=== PATIENT | male | born 1990 | race African-American/Black ===

== ENCOUNTER 2018-07-06 02:38 | Emergency (ER) | payer BC ==
[~2018-07-06] VITALS: Ht 195.6 cm; Wt 99.8 kg
[2018-07-06 02:50] VITALS: BP 118/69
--- NOTE | 2018-07-06 02:52 | NUR ---
Pt sent to lobby to wait for a bed.
--- NOTE | 2018-07-06 03:29 | NUR ---
PT TAKEN TO BED 8
--- NOTE | 2018-07-06 03:30 | NUR ---
PT PRESENTED ER WITH C/O N/V X 1 DAY. PT STATED HE HAS SOME CHEST PAIN. PAIN LEVEL IS 1/10 AT THIS TIME. BOWL SOUNDS ACTIVE IN ALL 4 Q. PT HAS KNA AND NO PREVIOUS MEDICAL HX.SKIN IS PINK/WARM/DRY; EVEN AND STEADY GAIT; VSS; PATIENT POSITIONED FOR COMFORT; HOB ELEVATED; BEDRAILS UP X2; BED DOWN. ER MD MADE AWARE OF PT STATUS.
[2018-07-06] MEDS ORDERED: NACL 0.9% 1,000 ML IV SCH (03:58)
[2018-07-06] MEDS ORDERED: MORPHINE SULFATE 4 MG/ML SYR IVP ONE (04:00)
[2018-07-06] MEDS ORDERED: ONDANSETRON 4 MG/2 ML VIAL IVP ONE (04:00)
[2018-07-06 05:07] LABS: BASOPHILS # (AUTO) 0.1 K/uL (0.00-0.22); BASOPHILS % (AUTO) 0.9 % (0.0-2.0); EOSINOPHILS # (AUTO) 0.2 K/uL (0-0.4); EOSINOPHILS % (AUTO) 2.6 % (0.0-4.0); HEMATOCRIT 44.1 % (36-52); HEMOGLOBIN 14.5 g/dL (12.0-18.0); LYMPHOCYTES # (AUTO) 2.7 K/uL (2.0-11.5); LYMPHOCYTES % (AUTO) 33.7 % (20.5-51.1); MEAN CORPUSCULAR HEMOGLOBIN 30 pg (27-31); MEAN CORPUSCULAR HGB CONC 33 g/dL (33-37); MEAN CORPUSCULAR VOLUME 91.1 fL (80-94); MONOCYTES # (AUTO) 0.6 K/uL (0.8-1.0); MONOCYTES % (AUTO) 7.8 % (1.7-9.3); NEUTROPHILS # (AUTO) 4.4 K/uL (1.8-7.7); PLATELET COUNT (AUTO) 289 K/uL (140-450); RED BLOOD CELL COUNT(AUTO) 4.84 MIL/uL (4.20-6.10); RED CELL DISTRIBUTION WIDTH 13.2 % (11.6-13.7)
[2018-07-06 05:30] LABS: ALBUMIN 4.1 g/dL (3.4-5.0); CREATININE 1.2 mg/dL (0.7-1.3); POTASSIUM 3.7 mmol/L (3.5-5.1); TOTAL BILIRUBIN 0.5 mg/dL (0.0-1.0)
[2018-07-06 05:40] LABS: ANION GAP 9.9 (8-16); CARBON DIOXIDE 28.8 mmol/L (21-32)
[2018-07-06 06:04] LABS: BARBITURATE, URINE NEG. ng/ml (NEG <=200); BENZODIAZEPINE, URINE NEG. ng/mL (NEG <=200); CANNABINOID, URINE NEG. ng/mL (NEG <=50); COCAINE, URINE NEG. ng/mL (NEG <=300); OPIATE, URINE NEG. ng/mL (NEG <=2000); PHENCYCLIDINE SCREEN,URINE NEG. ng/mL (NEG <=25)
[2018-07-06 06:14] LABS: APPEARANCE,URINE SLIGHTLY HAZY (CLEAR); BILIRUBIN,URINE NEGATIVE (NEGATIVE); BLOOD, URINE NEGATIVE (NEGATIVE); COLOR,URINE YELLOW (YELLOW); UGLUCOSE NEGATIVE (NEGATIVE)
[2018-07-06 06:15] LABS: LEUKOCYTE ESTERASE ,URINE NEGATIVE (NEGATIVE); NITRITE, URINE NEGATIVE (NEGATIVE)
[2018-07-06 06:16] LABS: RBC,URINE NONE SEEN /HPF (0-5); WBC,URINE 0-5 (RARE) /HPF (0-5)
[2018-07-06 06:37] VITALS: BP 119/74
--- NOTE | 2018-07-06 06:37 | NUR ---
Patient discharged with v/s stable. Written and verbal after care instructions given and explained. Patient alert, oriented and verbalized understanding of instructions. Ambulatory with steady gait. All questions addressed prior to discharge. ID band removed. Patient advised to follow up with PMD. Rx of zofran was given. Patient educated on indication of medication including possible reaction and side effects. Opportunity to ask questions provided and answered.
== END 2018-07-06 06:37 | disposition home or self-care (01) ==
LOC: MED 02:38
DX: R11.10 Vomiting, unspecified (principal); R07.89 Other chest pain
CPT/HCPCS: 36415; 80053; 80305; 81001; 83690; 83880; 84484; 85025; 93005; 96361; 96374; 99285; J2405; J7030; J2270